=== PATIENT | female | born 1995 | race Caucasian/White ===

== ENCOUNTER 2016-08-10 09:13 | Emergency (ER) | payer MEDICAID ==
--- NOTE | ~2016-08-10 | ENPV ---
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 Normal right upper extremity venous duplex. Procedure Type of Study: Veins:Upper Extremities Veins, Upper Extremity Right. Indications for Study:Arm swelling. Appropriate Use Criteria:9 Patient Status:STAT. Study Location:ER. Technical Quality:Adequate visualization. Velocities are measured in cm/s ; Diameters are measured in cm Right UE Vein Measurements 2D and Doppler Measurements + + + + +--------+--------+ !Location !Visualized !Compressibility !Thrombosis !Signal !Reflux ! + + + + +--------+--------+ !IJV !Yes !Yes !None !Phasic !No ! + + + + +--------+--------+ !SCV !Yes !Yes !None !Phasic !No ! + + + + +--------+--------+ !Innominate !Yes !Yes !None !Phasic !No ! + + + + +--------+--------+ !Axillary !Yes !Yes !None !Phasic !No ! + + + + +--------+--------+ !Brachial !Yes !Yes !None !Phasic !No ! + + + + +--------+--------+ !Radial !Yes !Yes !None !Phasic !No ! + + + + +--------+--------+ !Ulnar !Yes !Yes !None !Phasic !No ! + + + + +--------+--------+ !Basilic !Yes !Yes !None !Phasic !No ! + + + + +--------+--------+ !Cephalic !Yes !Yes !None !Phasic !No ! + + + + +--------+--------+ Left UE Vein Measurements 2D and Doppler Measurements + + + + +--------+ + !Location !Visualized !Compressibility !Thrombosis !Signal !Reflux ! + + + + +--------+ + !IJV !Yes !Yes !None ! ! ! + + + + +--------+ + Signature dtt: LIUDMILA [employer] dtd: 08/10/16 1018 Physician Self Edit
--- NOTE | ~2016-08-10 | ER ---
PATIENT'S NAME: SYLVIA KELLER [facility] AGE: 21 Y [address] ROOM: [place] [address] LOCATION: ED ADMIT DATE: 08/10/2016 ER/Outpatient Report DISCHARGE DATE: 08/10/2016 FAMILY PHYSICIAN: Mary Castanon MD ATTENDING PHYSICIAN: Jan Fournier Time of Arrival: 0916 hours. Time of Evaluation: 0928 hours. CHIEF COMPLAINT: Right elbow pain and swelling. HISTORY OF PRESENT ILLNESS: The patient is a 21-year-old female, who presents to the emergency department today with a chief complaint of right elbow pain and swelling. It started about 3 to 4 days prior to arrival. She notes some numbness and tingling in her thumb, index, middle, and ring finger. She noticed some swelling in her hand. She is at 29 weeks. Denies any fevers or chills. Denies any trauma or fall. She does work in [employer]. She does not note repetitive movement. She did take Tylenol at 3 a.m. PAST MEDICAL HISTORY: None. PAST SURGICAL HISTORY: Appendectomy. SOCIAL HISTORY: The patient works at [employer]. She denies tobacco, alcohol, or illicit drug use. ALLERGIES: NO KNOWN DRUG ALLERGIES. MEDICATIONS: Include vitamins. PRIMARY CARE DOCTOR: Mary Castanon MD. REVIEW OF SYSTEMS: All systems are reviewed by myself and are negative with the exception of those discussed in the HPI and past medical history. PHYSICAL EXAMINATION: PATIENT'S NAME: SYLVIA KELLER [facility] AGE: 21 Y [address] ROOM: [place] [address] LOCATION: [facility] ADMIT DATE: 08/10/2016 ER/Outpatient Report DISCHARGE DATE: 08/10/2016 FAMILY PHYSICIAN: Mary Castanon MD ATTENDING PHYSICIAN: Jan Fournier VITAL SIGNS: Weight is 66.2 kg, blood pressure 131/77, pulse 96, respiratory rate 20, temperature 98.1, oxygen saturation 98% on room air. heart tones are 134. GENERAL: The patient is a 21-year-old female, who appears stated age, in no acute distress at this time. HEENT: Head: Normocephalic, atraumatic. Pupils are equal, round, and reactive to light. NECK: Supple. There is no nuchal rigidity. CARDIOVASCULAR: Regular rate and rhythm. No murmurs, rubs, or gallops. LUNGS: Clear to auscultation bilaterally. No wheezes, rales, or rhonchi. ABDOMEN: Soft, gravid. No rebound, rigidity, or guarding. Positive bowel sounds. MUSCULOSKELETAL: The patient moves all 4 extremities. She has full range of motion of her right upper extremity. She has no tenderness to palpation of the neck or none of the shoulder. She has some mild tenderness around the elbow. She has some very mild swelling, that is increased from the left. Pulses are 2/4. She has decreased sensation in the radial and median nerve distribution. Ulnar nerve is normal. SKIN: Warm and dry. There are no rashes or lesions noted. LABORATORY DATA AND X-RAYS: Ultrasound of the right upper extremity is obtained. I have discussed the results with the tech. He reports that it shows no evidence of DVT. There is a mass that appears to be a lymph node. CBC is normal. D-dimer is normal. CMP is normal. LFTs are normal. IMPRESSION: 1. Right hand swelling and numbness. 2. Initial visit. EMERGENCY DEPARTMENT COURSE: The patient was brought back to the examination room. Seen and evaluated by myself. Laboratory analysis and imaging are obtained as described above. I have discussed results with the patient. I recommend close followup with Dr. Mary Castanon in 2 to 3 days. I have recommended elevation and Tylenol. I have discussed return to care instructions including worsening symptoms or any other concerns to return to the emergency department as soon as possible. The patient is agreeable without further questions. DISPOSITION: The patient discharged home in good condition. DO ERVIN THOMASR/mikall PATIENT'S NAME: SYLVIA KELLER [facility] AGE: 21 Y [address] ROOM: [place], [place] [address] LOCATION: ED ADMIT DATE: 08/10/2016 ER/Outpatient Report DISCHARGE DATE: 08/10/2016 FAMILY PHYSICIAN: Mary Castanon MD ATTENDING PHYSICIAN: Jan Fournier /[id number] d: 08/10/16 1848 t: 08/13/16 193, OUTPATIENT REPORT
[2016-08-10 09:49] LABS: BASOPHIL % 0.2 %; EOSINOPHIL # 0.1 K/uL (0.0-0.5); EOSINOPHIL % 0.6 %; HEMATOCRIT 33.3 % (33.0-46.0); HEMOGLOBIN 11.5 g/dL (11.0-15.0); IMMATURE GRANULOCYTE % 0.3 %; LYMPHOCYTE # 1.2 K/uL (0.8-4.0); LYMPHOCYTE % 12.2 %; MCH 31.8 pg (27.0-34.0); MCHC 34.5 gm/dL (32.0-36.5); MONOCYTE # 0.8 K/uL (0.0-1.0); MONOCYTE % 8.3 %; NEUTROPHIL # (ANC) 7.4 K/uL (1.8-7.8); NEUTROPHIL % 78.4 %; NRBC % 0 /100WBC (0-0.00); PLATELET COUNT 243 K/uL (150-450); RBC 3.62 M/uL (3.50-5.00); RDW-CV 12.4 % (11.9-14.6); WBC 9.5 K/uL (4.0-11.0)
[2016-08-10 10:06] LABS: ALBUMIN 2.8 gm/dL (3.5-5.0); ALK PHOS 96 IU/L (33-138); ALT 18 IU/L (12-78); AST 16 IU/L (10-40); BLOOD UREA NITROGEN 5 mg/dL (6-24); CALCIUM 8.4 mg/dL (8.5-10.5); CHLORIDE 105 mMol/L (96-110); CO2 21 mMol/L (22-32); CREATININE 0.6 mg/dL (0.5-1.1); ESTIMATED GFR (MDRD EQUATION) > 60; SODIUM 141 mMol/L (135-145); TOTAL BILIRUBIN 0.3 mg/dL (0.0-1.5); TOTAL PROTEIN 6.4 g/dL (6.0-8.4)
== END 2016-08-10 10:41 | disposition disaster alternative care site (69) ==
LOC: GMED 09:13
PROVIDERS: Emergency Medicine
DX: M79.89 Other specified soft tissue disorders (principal); R20.0 Anesthesia of skin; Z90.49 Acquired absence of other specified parts of digestive tract

== ENCOUNTER 2016-09-05 11:36 | Inpatient (IN) | payer MEDICAID ==
[~2016-09-05] VITALS: Ht 165.1 cm; Wt 66.8 kg
--- NOTE | ~2016-09-05 | DS ---
PATIENT'S NAME: SYLVIA KELLER [facility] AGE: 21 Y [address] ROOM: [id number] [place], [place] [address] LOCATION: [facility] ADMIT DATE: 09/05/2016 Discharge Summary DISCHARGE DATE: 09/13/2016 FAMILY PHYSICIAN: Mary Castanon MD ATTENDING PHYSICIAN: Mary Castanon INCORRECT WORK TYPE 09/15/16 AO DISCHARGE DIAGNOSES: 1. Preeclampsia with severe features. 2. Intrauterine at 33 weeks and 5 days. 3. Status post vaginal delivery. REASON FOR ADMISSION: Severe preeclampsia. PROCEDURES DURING ADMISSION: Spontaneous vaginal delivery. Please see operative note for details. HOSPITAL COURSE: The patient is a 21-year-old G1, who presented to clinic on 09/05 and presented to have elevated blood pressures. She was sent over for evaluation by Dr. Mary Castanon, she was found to have blood pressures of 150s over 100s, therefore she was given Celestone. She was given a Mag bolus and started on Mag 2 g an hour. GBS was checked and the 24-hour urine was started. The patient's other labs were all noted to be normal including her hemoglobin, platelets, AST, ALT, and creatinine. The patient continued to have mild blood pressures over the next 24 hours, but her 24-hour urine protein came back greater than 7 g. Expectant management was recommended. The patient's magnesium was discontinued after 48 hours. On hospital day #3, she was noted to have a severe range blood pressure. She again had a severe range blood pressure in the morning of hospital day #4, admitted with the diagnosis of preeclampsia with severe features. Her blood pressures required treatment acutely once a day on hospital day #4 and #5. On hospital day #6, she required treatments acutely three times within 12 hours, therefore, delivery was recommended. The patient was found to be 2 cm dilated. She was started on Pitocin. She progressed to complete and had a vaginal delivery without complications. Please see delivery note. On hospital day #1, the patient was doing well. She remained on magnesium for 24 hours after delivery. She also was started on Procardia 60 mg daily after delivery. On day #2, her blood pressures were again noted to be elevated. Her AST on day #1 was and was not checked on day #2, but given that it increased a little bit. The patient's blood pressures were still slightly elevated. It was recommended to continue to observe her for another 24 hours. Her blood pressures on day #3 were 150s over 100s. She had labs rechecked and her AST was noted to be 80, her ALT was noted to be 75, her creatinine was normal at 0.6. Her platelets and hemoglobin were noted to be normal. She was asymptomatic. It was recommended that she increase her Procardia to 90 mg daily. PATIENT'S NAME: SYLVIA KELLER [facility] AGE: 21 Y [address] ROOM: [place] [address] LOCATION: [facility] ADMIT DATE: 09/05/2016 Discharge Summary DISCHARGE DATE: 09/13/2016 FAMILY PHYSICIAN: Mary Castanon MD ATTENDING PHYSICIAN: Mary Castanon DISCHARGE PRECAUTIONS: Discussed and it was felt that patient was stable to be discharged home with followup labs and blood pressure check in the office on Thursday. DISCHARGE MEDICATIONS: 1. vitamin. 2. Colace 250 mg b.i.d. 3. Ibuprofen 800 mg once every 8 hours p.r.n. pain. 4. [place] 5 mg/325 mg one to two tabs q.4-6 hours p.r.n. pain #20 prescribed. 5. Procardia XL 90 mg one tab daily #30 with three refills. DISCHARGE INSTRUCTIONS: The patient was instructed to call with pain not controlled with pain medications, bleeding more than a pad an hour, fever greater than 100.4. She was also instructed to call if she had a severe headache, chest pain, or shortness of breath, or severe abdominal pain. She was instructed to call the office on Thursday morning to be seen for blood pressure check and repeat labs. MD VICKY KELLER/rubin /[id number] INCORRECT WORK TYPE 09/15/16 AO d: 09/13/16 1218 t: 04/09/17 1704, DISCHARGE SUMMARY
--- NOTE | ~2016-09-05 | CON ---
PATIENT'S NAME: NUHA JOAQUIN [facility] AGE: 21 Y [address] ROOM: [facility] [place], [place] [address] LOCATION: [facility] ADMIT DATE: 09/05/2016 Consultation DISCHARGE DATE: FAMILY PHYSICIAN: Mary Castanon MD ATTENDING PHYSICIAN: Mary Castanon DATE OF CONSULTATION: 09/05/2016 REFERRING PHYSICIAN: OLIVIER HARRIS MD REASON FOR CONSULTATION: , -induced hypertension, possible preeclampsia. HISTORY OF PRESENT ILLNESS: Nuha Joaquin is a 21-year-old, thin, white female, primigravida at 32-33 weeks' gestational age. Based on LMP of 01/18/2016, she is a 33 weeks 0 days gestational age. Based on ultrasound on 04/29/2016, she is 32 weeks and 1 day gestational age. She presented Dr. Castanon's office earlier today with hypertension. It is reported that she had 3+ proteinuria, but it is recorded as no proteinuria on the OB record. She did not have any other symptoms of preeclampsia. Her laboratory studies were normal for and not consistent with preeclampsia. She has been started on magnesium sulfate and left on. She is undergoing a 24-hour urine collection. I agree with the above steps and if the patient's -induced hypertension/preeclampsia worsens, they need to attempt to wait 48 hours following the delivery at the hospital. MD ANUP WHITE/rubin /[id number] d: 09/05/16 2333 t: 09/10/16 0722, CONSULTATION REPORT
--- NOTE | ~2016-09-05 | OR ---
PATIENT'S NAME: SYLVIA KELLER [facility] AGE: 21 Y [address] ROOM: [place] [address] LOCATION: [facility] ADMIT DATE: 09/05/2016 OR/Procedure Report DISCHARGE DATE: FAMILY PHYSICIAN: Mary Castanon MD ATTENDING PHYSICIAN: Mary Castanon SURGEON: Caterina Miranda MD [employer]: DATE OF PROCEDURE: 09/10/2016 PREOPERATIVE DIAGNOSES: 1. Intrauterine at 33 weeks and 5 days. 2. Severe preeclampsia. POSTOPERATIVE DIAGNOSES: 1. Intrauterine at 33 weeks and 5 days. 2. Severe preeclampsia. PROCEDURE: Spontaneous vaginal delivery. ESTIMATED BLOOD LOSS: 300 mL. ANESTHESIA: Epidural. FINDINGS: Male infant. score 8 and 9. Weight 4 pounds 1 ounce. Intact placenta, 3-vessel cord. No perineal lacerations. Right periurethral laceration. INDICATIONS: This patient is a 21-year-old, 1, female. She has been admitted to the hospital for several days for preeclampsia. She was given magnesium sulfate and Celestone and monitored. Over the past 24 hours, she has had to have her blood pressure treated multiple times to keep it out of severe range and therefore meets the criteria for delivery. She had artificial rupture of membranes followed by Pitocin. She progressed quickly to complete. She underwent expulsive efforts for about 25 minutes. DESCRIPTION OF PROCEDURE: With expulsive effort, the head delivered over an intact perineum. The rest of fetus delivered. The nose and mouth were bulb suctioned. The cord was clamped and cut. The was handed to awaiting team. Cord blood and cord pH were drawn. The placenta delivered with manual traction. Cervix, vagina, and perineum were examined. There was a periurethral laceration repaired with one Vicryl stitch. COMPLICATIONS: None. CONDITION: Mom stable in room. Infant to NICU. PATIENT'S NAME: SYLVIA KELLER [facility] AGE: 21 Y [address] ROOM: [place] [address] LOCATION: [facility] ADMIT DATE: 09/05/2016 OR/Procedure Report DISCHARGE DATE: FAMILY PHYSICIAN: Mary Castanon MD ATTENDING PHYSICIAN: Mary Castanon MD ADELE VALDIVIA/mikall /[id number] d: 09/11/16 1310 t: 09/16/16 0914, OPERATIVE SUMMARY
[2016-09-05 12:22] LABS: BASOPHIL % 0.3 %; EOSINOPHIL # 0.1 K/uL (0.0-0.5); EOSINOPHIL % 0.7 %; HEMATOCRIT 33.6 % (33.0-46.0); HEMOGLOBIN 11.5 g/dL (11.0-15.0); IMMATURE GRANULOCYTE % 0.3 %; LYMPHOCYTE # 0.9 K/uL (0.8-4.0); LYMPHOCYTE % 12.4 %; MCH 31.5 pg (27.0-34.0); MCHC 34.2 gm/dL (32.0-36.5); MCV 92.1 fl (83.0-98.0); MONOCYTE # 0.8 K/uL (0.0-1.0); MONOCYTE % 9.9 %; MPV 12.5 fl (9.4-12.4); NEUTROPHIL # (ANC) 5.8 K/uL (1.8-7.8); NEUTROPHIL % 76.4 %; NRBC % 0 /100WBC (0-0.00); RBC 3.65 M/uL (3.50-5.00); WBC 7.6 K/uL (4.0-11.0)
[2016-09-05 12:25] LABS: PLATELET COUNT 178 K/uL (150-450)
[2016-09-05] MEDS ORDERED: PRENATAL 1+1)(P1 TAB PO (12:33)
[2016-09-05 12:38] LABS: ALBUMIN 2.3 gm/dL (3.5-5.0); ALK PHOS 130 IU/L (33-138); ALT 21 IU/L (12-78); ANION GAP 11.7 (10.0-19.0); AST 22 IU/L (10-40); BLOOD UREA NITROGEN 13 mg/dL (6-24); CALCIUM 8.4 mg/dL (8.5-10.5); CHLORIDE 106 mMol/L (96-110); CO2 26 mMol/L (22-32); CREATININE 0.6 mg/dL (0.5-1.1); ESTIMATED GFR (MDRD EQUATION) > 60; POTASSIUM 4.7 mMol/L (3.7-5.1); SODIUM 139 mMol/L (135-145); TOTAL PROTEIN 5.3 g/dL (6.0-8.4)
[2016-09-05 12:39] LABS: TOTAL BILIRUBIN 0.2 mg/dL (0.0-1.5)
[2016-09-05 18:08] LABS: BASOPHIL % 0.2 %; EOSINOPHIL % 0.3 %; HEMATOCRIT 33.4 % (33.0-46.0); HEMOGLOBIN 11.4 g/dL (11.0-15.0); IMMATURE GRANULOCYTE % 0.4 %; LYMPHOCYTE # 1.1 K/uL (0.8-4.0); LYMPHOCYTE % 10.1 %; MCH 31.8 pg (27.0-34.0); MCHC 34.1 gm/dL (32.0-36.5); MONOCYTE # 0.8 K/uL (0.0-1.0); MONOCYTE % 7.4 %; MPV 12.9 fl (9.4-12.4); NEUTROPHIL # (ANC) 8.6 K/uL (1.8-7.8); NEUTROPHIL % 81.6 %; NRBC % 0 /100WBC (0-0.00); PLATELET COUNT 176 K/uL (150-450); RBC 3.59 M/uL (3.50-5.00); WBC 10.5 K/uL (4.0-11.0)
[2016-09-05 18:22] LABS: MAGNESIUM 4.6 mg/dL (1.3-2.6)
--- NOTE | 2016-09-06 05:48 | NUR ---
Last VS: T:98.7 P: R: BP: Pain ratin Last pain med: NONE GIVEN Medicated at: Effective: FHT: 120's to 130's Dilatation: Effacement %: Station: Significant event: PT ON 2 GM/HR MGSO4. DTRS 1+ TO 2+. OUTPUT HAS SLOWED THIS AM. LAST HR WAS 30. LUNG SOUNDS CLEAR BILATERALLY. PT DOING WELL WITH MGS04, NO ADVERSE AFFECTS. MG LEVELS ORDERED EVERY 4 HRS UNTIL 11 THIS AM.
[2016-09-06 06:11] LABS: BASOPHIL % 0.1 %; HEMATOCRIT 33.3 % (33.0-46.0); HEMOGLOBIN 11.3 g/dL (11.0-15.0); IMMATURE GRANULOCYTE # 0.1 K/uL (0.0-0.3); IMMATURE GRANULOCYTE % 0.9 %; LYMPHOCYTE # 0.7 K/uL (0.8-4.0); LYMPHOCYTE % 5.1 %; MCH 31.3 pg (27.0-34.0); MCHC 33.9 gm/dL (32.0-36.5); MCV 92.2 fl (83.0-98.0); MONOCYTE # 0.3 K/uL (0.0-1.0); MONOCYTE % 2.4 %; MPV 12.7 fl (9.4-12.4); NEUTROPHIL % 91.5 %; NRBC % 0 /100WBC (0-0.00); PLATELET COUNT 212 K/uL (150-450); RBC 3.61 M/uL (3.50-5.00); RDW-CV 11.9 % (11.9-14.6); WBC 13.1 K/uL (4.0-11.0)
[2016-09-06 06:32] LABS: ALBUMIN 2.2 gm/dL (3.5-5.0); ALK PHOS 127 IU/L (33-138); ALT 24 IU/L (12-78); ANION GAP 16.5 (10.0-19.0); AST 26 IU/L (10-40); BLOOD UREA NITROGEN 10 mg/dL (6-24); CALCIUM 7.5 mg/dL (8.5-10.5); CHLORIDE 102 mMol/L (96-110); CO2 20 mMol/L (22-32); CREATININE 0.7 mg/dL (0.5-1.1); ESTIMATED GFR (MDRD EQUATION) > 60; POTASSIUM 4.5 mMol/L (3.7-5.1); SODIUM 134 mMol/L (135-145); TOTAL BILIRUBIN 0.2 mg/dL (0.0-1.5); TOTAL PROTEIN 5.6 g/dL (6.0-8.4)
--- NOTE | 2016-09-06 17:26 | NUR ---
Vitals stable. Bp's 116/120's/ 60-80's. Afebrile. Bilateral pnuematics on. Sykes cath d/c'd. 24 hour UA completed and results called to . Regular diet and bathroom priveleges. Magnesium infusion at 0.5 GM/HR. 1500 Mag level was 4.7. Celestone 2nd dose given at 1700. Fht's baseline at 125 with moderate variablility. Occasional contractions.
[2016-09-07 09:27] LABS: BASOPHIL % 0.1 %; HEMATOCRIT 32.3 % (33.0-46.0); HEMOGLOBIN 10.5 g/dL (11.0-15.0); IMMATURE GRANULOCYTE # 0.1 K/uL (0.0-0.3); IMMATURE GRANULOCYTE % 0.6 %; LYMPHOCYTE # 0.8 K/uL (0.8-4.0); LYMPHOCYTE % 4.8 %; MCH 30.9 pg (27.0-34.0); MCHC 32.5 gm/dL (32.0-36.5); MONOCYTE # 0.8 K/uL (0.0-1.0); MPV 13.8 fl (9.4-12.4); NEUTROPHIL # (ANC) 14.2 K/uL (1.8-7.8); NEUTROPHIL % 89.5 %; NRBC % 0 /100WBC (0-0.00); PLATELET COUNT 192 K/uL (150-450); WBC 15.9 K/uL (4.0-11.0)
[2016-09-07 09:38] LABS: ALBUMIN 2.2 gm/dL (3.5-5.0); ALK PHOS 119 IU/L (33-138); ALT 20 IU/L (12-78); ANION GAP 15.4 (10.0-19.0); AST 21 IU/L (10-40); BLOOD UREA NITROGEN 15 mg/dL (6-24); CHLORIDE 109 mMol/L (96-110); CO2 20 mMol/L (22-32); CREATININE 0.7 mg/dL (0.5-1.1); ESTIMATED GFR (MDRD EQUATION) > 60; POTASSIUM 4.4 mMol/L (3.7-5.1); SODIUM 140 mMol/L (135-145); TOTAL PROTEIN 5.5 g/dL (6.0-8.4)
[2016-09-07 09:41] LABS: CALCIUM 7.4 mg/dL (8.5-10.5); TOTAL BILIRUBIN < 0.1 mg/dL (0.0-1.5)
--- NOTE | 2016-09-07 17:17 | NUR ---
BP 110's-160/60's-100. other vss. LR to R hand runing at 125ml/hr. MgSO4 off at 1700. reflexes 2+ r patella. resp 14-16. showered. bedside US done by Cathy. labs stable today, no others ordered. call BP greater than 160/100.
--- NOTE | 2016-09-08 05:10 | NUR ---
Significant Event: Magnesium off, up to bathroom only, voiding large amounts. IV to left hand running TKO. Patient denies pain. Procardia given at 0220 for higher BP's. Denies needs Follow up:
[2016-09-08 05:50] LABS: BASOPHIL % 0.1 %; EOSINOPHIL % 0.1 %; HEMATOCRIT 30.3 % (33.0-46.0); HEMOGLOBIN 9.8 g/dL (11.0-15.0); IMMATURE GRANULOCYTE # 0.1 K/uL (0.0-0.3); IMMATURE GRANULOCYTE % 1.3 %; LYMPHOCYTE % 9.5 %; MCH 30.9 pg (27.0-34.0); MCHC 32.3 gm/dL (32.0-36.5); MCV 95.6 fl (83.0-98.0); MONOCYTE # 1.2 K/uL (0.0-1.0); MONOCYTE % 11.7 %; MPV 13.4 fl (9.4-12.4); NEUTROPHIL # (ANC) 8.2 K/uL (1.8-7.8); NEUTROPHIL % 77.3 %; NRBC % 0 /100WBC (0-0.00); PLATELET COUNT 164 K/uL (150-450); RBC 3.17 M/uL (3.50-5.00); WBC 10.6 K/uL (4.0-11.0)
[2016-09-08 06:03] LABS: ANION GAP 12.9 (10.0-19.0); BLOOD UREA NITROGEN 13 mg/dL (6-24); CHLORIDE 108 mMol/L (96-110); CO2 24 mMol/L (22-32); CREATININE 0.8 mg/dL (0.5-1.1); ESTIMATED GFR (MDRD EQUATION) > 60; POTASSIUM 3.9 mMol/L (3.7-5.1); SODIUM 141 mMol/L (135-145)
[2016-09-08 06:59] LABS: ALK PHOS 106 IU/L (33-138); ALT 16 IU/L (12-78); ANION GAP 12.9 (10.0-19.0); AST 18 IU/L (10-40); BLOOD UREA NITROGEN 14 mg/dL (6-24); CHLORIDE 109 mMol/L (96-110); CO2 24 mMol/L (22-32); CREATININE 0.7 mg/dL (0.5-1.1); ESTIMATED GFR (MDRD EQUATION) > 60; POTASSIUM 3.9 mMol/L (3.7-5.1); SODIUM 142 mMol/L (135-145); TOTAL PROTEIN 5.1 g/dL (6.0-8.4)
[2016-09-08 07:01] LABS: CALCIUM 6.9 mg/dL (8.5-10.5)
[2016-09-08 07:02] LABS: TOTAL BILIRUBIN 0.2 mg/dL (0.0-1.5)
--- NOTE | 2016-09-08 16:38 | NUR ---
09/08 am labs WBC 10.6, PLT 164, HGB 9.8, CMS: Calcium 6.9. BP's today 130's-160's/77-103. VE by Ryland this am closed/high. Dr. Morgan reviewed labs and BP's this am. Plan to try and get pt to Thursday when 34 wks and then restart MgSO4 and induce. Will deliver sooner if labs abnormal, BP's increase and don't respond to medication. Pt showered at 1100 am this am. BP's after shower 160-164/96-98. notified Procardia 10 mg given at 1306. BP since medication 105-131/54-78. Pt resting in bed. SL in left hand. Pneumatic compression garments on. Strict I&O. BM today.
[2016-09-09 04:07] LABS: BASOPHIL % 0.2 %; EOSINOPHIL % 0.2 %; HEMATOCRIT 32.4 % (33.0-46.0); HEMOGLOBIN 10.8 g/dL (11.0-15.0); IMMATURE GRANULOCYTE # 0.1 K/uL (0.0-0.3); LYMPHOCYTE # 1.4 K/uL (0.8-4.0); LYMPHOCYTE % 13.6 %; MCH 31.3 pg (27.0-34.0); MCHC 33.3 gm/dL (32.0-36.5); MCV 93.9 fl (83.0-98.0); MONOCYTE # 1.3 K/uL (0.0-1.0); MONOCYTE % 12.7 %; MPV 12.6 fl (9.4-12.4); NEUTROPHIL # (ANC) 7.4 K/uL (1.8-7.8); NEUTROPHIL % 72.3 %; NRBC % 0 /100WBC (0-0.00); PLATELET COUNT 175 K/uL (150-450); RBC 3.45 M/uL (3.50-5.00); RDW-CV 11.9 % (11.9-14.6); WBC 10.2 K/uL (4.0-11.0)
[2016-09-09 04:26] LABS: ALK PHOS 106 IU/L (33-138); ALT 39 IU/L (12-78); ANION GAP 15.1 (10.0-19.0); AST 42 IU/L (10-40); BLOOD UREA NITROGEN 14 mg/dL (6-24); CHLORIDE 108 mMol/L (96-110); CO2 22 mMol/L (22-32); CREATININE 0.7 mg/dL (0.5-1.1); ESTIMATED GFR (MDRD EQUATION) > 60; POTASSIUM 4.1 mMol/L (3.7-5.1); SODIUM 141 mMol/L (135-145); TOTAL BILIRUBIN 0.2 mg/dL (0.0-1.5)
[2016-09-09 04:35] LABS: ALBUMIN 1.9 gm/dL (3.5-5.0); CALCIUM 7.3 mg/dL (8.5-10.5)
--- NOTE | 2016-09-09 04:35 | NUR ---
Last VS: T:98.2 P:84 R: 18 BP: 139/82 Pain ratin Last pain med: NONE GIVEN Medicated at: Effective: FHT: 130's Dilatation: Effacement %: Station: Significant event: PT'S BLOOD PRESSURE BEGAN TO ELEVATE AROUND 2300. HIGHEST WAS 165/103 AT THAT TIME. WAS CALLED WHO GAVE ORDER FOR PROCARDIA 10 MG TO BE GIVEN. PRESSURES STABILIZED AGAIN. PT HAD ADEQUATE OUTPUT OF 800 ML. LABS THIS AM.
--- NOTE | 2016-09-09 11:13 | NUR ---
Patellar reflexes assessed and noted as 2+
--- NOTE | 2016-09-09 11:30 | NUR ---
Student charting read.
[2016-09-10 05:31] LABS: BASOPHIL % 0.3 %; EOSINOPHIL # 0.1 K/uL (0.0-0.5); EOSINOPHIL % 0.5 %; HEMATOCRIT 33.2 % (33.0-46.0); HEMOGLOBIN 11.4 g/dL (11.0-15.0); IMMATURE GRANULOCYTE # 0.1 K/uL (0.0-0.3); IMMATURE GRANULOCYTE % 0.8 %; LYMPHOCYTE # 1.3 K/uL (0.8-4.0); LYMPHOCYTE % 12.8 %; MCH 31.1 pg (27.0-34.0); MCHC 34.3 gm/dL (32.0-36.5); MCV 90.7 fl (83.0-98.0); MONOCYTE # 1.2 K/uL (0.0-1.0); MPV 12.8 fl (9.4-12.4); NEUTROPHIL # (ANC) 7.6 K/uL (1.8-7.8); NEUTROPHIL % 73.6 %; NRBC % 0 /100WBC (0-0.00); PLATELET COUNT 175 K/uL (150-450); RBC 3.66 M/uL (3.50-5.00); RDW-CV 11.7 % (11.9-14.6); WBC 10.3 K/uL (4.0-11.0)
[2016-09-10 05:46] LABS: ALBUMIN 1.8 gm/dL (3.5-5.0); ALK PHOS 120 IU/L (33-138); ALT 32 IU/L (12-78); AST 34 IU/L (10-40); BLOOD UREA NITROGEN 16 mg/dL (6-24); CALCIUM 7.6 mg/dL (8.5-10.5); CHLORIDE 108 mMol/L (96-110); CO2 23 mMol/L (22-32); CREATININE 0.7 mg/dL (0.5-1.1); ESTIMATED GFR (MDRD EQUATION) > 60; SODIUM 141 mMol/L (135-145); TOTAL BILIRUBIN 0.2 mg/dL (0.0-1.5)
--- NOTE | 2016-09-10 07:28 | NUR ---
Assessed DTRs at 2+ on right leg and 1+ on left leg. Edema present on lower extremeties.
--- NOTE | 2016-09-10 07:30 | NUR ---
Pt reports no pain or discomfort at this time
--- NOTE | 2016-09-10 13:23 | NUR ---
Student charting read.
[2016-09-10 16:25] LABS: PCO2 49 mmHg (35-45)
[2016-09-10 16:26] LABS: BICARBONATE 21.6 mmol/L (18.0-23.0); PO2 23 mmHg (80-90)
[2016-09-11 04:47] LABS: BASOPHIL % 0.1 %; EOSINOPHIL # 0.1 K/uL (0.0-0.5); EOSINOPHIL % 0.4 %; HEMATOCRIT 35.9 % (33.0-46.0); HEMOGLOBIN 11.9 g/dL (11.0-15.0); IMMATURE GRANULOCYTE # 0.1 K/uL (0.0-0.3); IMMATURE GRANULOCYTE % 0.4 %; LYMPHOCYTE # 1.4 K/uL (0.8-4.0); LYMPHOCYTE % 8.6 %; MCH 31.2 pg (27.0-34.0); MCHC 33.1 gm/dL (32.0-36.5); MONOCYTE # 1.5 K/uL (0.0-1.0); NEUTROPHIL # (ANC) 13.2 K/uL (1.8-7.8); NEUTROPHIL % 81.5 %; NRBC % 0 /100WBC (0-0.00); PLATELET COUNT 215 K/uL (150-450); RBC 3.82 M/uL (3.50-5.00); RDW-CV 11.9 % (11.9-14.6); WBC 16.2 K/uL (4.0-11.0)
[2016-09-11 05:13] LABS: ALK PHOS 109 IU/L (33-138); ALT 46 IU/L (12-78); ANION GAP 15.5 (10.0-19.0); AST 54 IU/L (10-40); BLOOD UREA NITROGEN 11 mg/dL (6-24); CHLORIDE 104 mMol/L (96-110); CO2 21 mMol/L (22-32); CREATININE 0.6 mg/dL (0.5-1.1); ESTIMATED GFR (MDRD EQUATION) > 60; POTASSIUM 4.5 mMol/L (3.7-5.1); SODIUM 136 mMol/L (135-145); TOTAL BILIRUBIN 0.2 mg/dL (0.0-1.5)
[2016-09-11 05:14] LABS: ALBUMIN 1.6 gm/dL (3.5-5.0); CALCIUM 7.2 mg/dL (8.5-10.5); TOTAL PROTEIN 4.7 g/dL (6.0-8.4)
--- NOTE | 2016-09-11 05:32 | NUR ---
Significant Event: Patient continues on magnesium at 2gm/hr, showered and went to NICU last night. Pump x3 last night. edema to lower extremities +1; fundus firm with small moderate. Motrin given at 0500 with relief Follow up:
--- NOTE | 2016-09-11 11:34 | NUR ---
[id number] I supervised the [employer] [employer] [facility] PN student nurse providing cares.
--- NOTE | 2016-09-11 15:20 | NUR ---
Introduced self/role to patient and significant other Derik. Gave them contact information for all the resources in [place]. Encouraged them to contact Medicaid to get baby added as soon as able. They have a carseat and states it is rated for 4lbs. They stated they have a good support systems of friends and family. Covered post -depression and gave them a hand out. Will continue to follow in NICU. Patient will consider rooming in or going home once discharged. They had no questions or concerns at this point.
--- NOTE | 2016-09-11 17:46 | NUR ---
MGSO4 OFF AT 1600. IV SALINE LOCKED. MAY VICKI DANIEL. TO NICU PER W/C TOLERATED WELL AT 1700. PERICARE AT 1700. EZRA MUNOZ.
--- NOTE | 2016-09-12 04:55 | NUR ---
VSS, last had percocet and motrin at 1915, up ad acitlin
--- NOTE | 2016-09-12 07:30 | NUR ---
[id number] I supervised the [facility] PN student nurse providing patient cares.
--- NOTE | 2016-09-12 17:22 | NUR ---
Significant Event: B/P's 140's/80-90's. Motrin last at 0715. Fundus firm, -1, midline, small flow. Pumped x1 this shift. Ambulates to NICU to see babe this afternoon. SL removed. Procardia in AM. CBC and CMS ordered for AM.
--- NOTE | 2016-09-13 04:36 | NUR ---
vss, bp's 154-157/95-100. fundus firm, even, small flow. no pain meds given this shift. cbc and cms to be drawn this am. merle at 0900. home today.
[2016-09-13 05:35] LABS: BASOPHIL % 0.3 %; EOSINOPHIL # 0.4 K/uL (0.0-0.5); EOSINOPHIL % 2.9 %; HEMOGLOBIN 10.6 g/dL (11.0-15.0); IMMATURE GRANULOCYTE # 0.1 K/uL (0.0-0.3); IMMATURE GRANULOCYTE % 0.6 %; LYMPHOCYTE # 1.6 K/uL (0.8-4.0); MCH 30.6 pg (27.0-34.0); MCHC 33.1 gm/dL (32.0-36.5); MCV 92.5 fl (83.0-98.0); MONOCYTE # 1.1 K/uL (0.0-1.0); MONOCYTE % 8.8 %; MPV 11.8 fl (9.4-12.4); NEUTROPHIL # (ANC) 9.7 K/uL (1.8-7.8); NEUTROPHIL % 75.4 %; NRBC % 0 /100WBC (0-0.00); RBC 3.46 M/uL (3.50-5.00); RDW-CV 12.3 % (11.9-14.6); WBC 12.9 K/uL (4.0-11.0)
[2016-09-13 05:36] LABS: PLATELET COUNT 154 K/uL (150-450)
[2016-09-13 05:47] LABS: ALK PHOS 105 IU/L (33-138); ALT 75 IU/L (12-78); ANION GAP 10.2 (10.0-19.0); AST 80 IU/L (10-40); BLOOD UREA NITROGEN 8 mg/dL (6-24); CALCIUM 7.9 mg/dL (8.5-10.5); CHLORIDE 105 mMol/L (96-110); CO2 29 mMol/L (22-32); CREATININE 0.6 mg/dL (0.5-1.1); ESTIMATED GFR (MDRD EQUATION) > 60; POTASSIUM 4.2 mMol/L (3.7-5.1); SODIUM 140 mMol/L (135-145); TOTAL BILIRUBIN 0.2 mg/dL (0.0-1.5); TOTAL PROTEIN 5.2 g/dL (6.0-8.4)
[2016-09-13 05:49] LABS: ALBUMIN 1.8 gm/dL (3.5-5.0)
[2016-09-13] MEDS ORDERED: SURFAK240 MG PO (09:46)
[2016-09-13] MEDS ORDERED: MOTRIN800 MG PO (09:46)
[2016-09-13] MEDS ORDERED: Norco 5/325 PO (09:49)
[2016-09-13] MEDS ORDERED: PROCARDIA XL30 MG PO (09:52)
== END 2016-09-13 10:55 | disposition disaster alternative care site (69) | DRG 775 ==
LOC: GOBS 11:36
PROVIDERS: Obstetrics & Gynecology; ADMIT Family Medicine
DX: O14.14 Severe pre-eclampsia complicating childbirth (principal); O71.82 Other specified trauma to perineum and vulva; Z3A.33 33 weeks gestation of pregnancy; Z37.0 Single live birth; O13.3 Gestational [pregnancy-induced] hypertension without significant proteinuria, third trimester
CPT/HCPCS: J0610; J0702; J2590; J3010; J3475; J7120

== ENCOUNTER → 2016-09-05 | Outpatient (CLI) | payer MEDICAID ==
[~2016-09-05] MED LIST: MOTRIN800 MG PO; Norco 5/325 PO; PRENATAL 1+1)(P1 TAB PO; PROCARDIA XL30 MG PO; SURFAK240 MG PO
[2016-09-05 17:36] LABS: BARBITURATE NEGATIVE (NEGATIVE); COCAINE NEGATIVE (NEGATIVE); OPIATES NEGATIVE (NEGATIVE)
[2016-09-06 09:32] LABS: AMPHETAMINE NEGATIVE (NEGATIVE)
== END | disposition disaster alternative care site (69) ==
LOC: LKCL 16:03
PROVIDERS: Family Medicine
DX: O13.3 Gestational [pregnancy-induced] hypertension without significant proteinuria, third trimester (principal); Z3A.32 32 weeks gestation of pregnancy